=== PATIENT | female | born 1970 | race American Indian/Alaskan Native ===

== ENCOUNTER 2017-02-06 16:27 | Emergency (ER) | payer BC, MEDICAID ==
[2017-02-06 16:33] VITALS: BMI 36.0
[2017-02-06 16:39] VITALS: BP 111/75; PULSE 92; RESP 17; TEMP 99.6; O2SAT 98
--- NOTE | 2017-02-06 17:19 | C.PDOC ---
History Of Present Illness 46 y/o female presents to the ED with complaints of sore throat, body aches, snoring and sleep apnea x3 days. Denies SOB, cough, fever or any other complaints. Time Seen by Provider: 02/06/17 17:11 Chief Complaint (Nursing): ENT Problem History Per: Patient History/Exam Limitations: no limitations Onset/Duration Of Symptoms: Days Current Symptoms Are (Timing): Still Present Location Of Pain: Throat, Diffuse Myalgias Sick Contacts (Context): None Associated Symptoms: Sore Throat. denies: Fever, Cough Severity: Mild Recent travel outside of the [place]: No Past Medical History Reviewed: Historical Data, Nursing Documentation, Vital Signs Vital Signs: Last Vital Signs Temp 99.6 F 02/06/17 16:33 Pulse 92 H 02/06/17 16:33 Resp 17 02/06/17 16:33 BP 111/75 02/06/17 16:33 Pulse Ox 98 02/06/17 17:19 - Medical History PMH: Anemia Family History: States: Unknown Family Hx - Social History Hx Tobacco Use: No Hx Alcohol Use: No Hx Substance Use: No - Immunization History Hx Tetanus Toxoid Vaccination: No Hx Influenza Vaccination: No Hx Pneumococcal Vaccination: No Review Of Systems Except As Marked, All Systems Reviewed And Found Negative. Constitutional: Positive for: Other (body aches). Negative for: Fever, Chills ENT: Positive for: Throat Pain Respiratory: Negative for: Cough, Shortness of Breath Physical Exam - Physical Exam Appears: Non-toxic, No Acute Distress Skin: Warm, Dry, No Rash Head: Atraumatic, Normacephalic Ear(s): Bilateral: Normal Nose: Normal Oral Mucosa: Moist Throat: Normal, No Erythema Neck: Normal, Normal ROM, Supple Chest: Symmetrical Cardiovascular: Rhythm Regular, No Murmur Respiratory: Normal Breath Sounds, No Rales, No Rhonchi, No Wheezing Extremity: Bilateral: Atraumatic Neurological/Psych: Oriented x3, Normal Speech ED Course And Treatment O2 Sat by Pulse Oximetry: 98 (room air) Pulse Ox Interpretation: Normal Medical Decision Making Medical Decision Making: mild viral syndrome mild diarrhea due to new (self prescribed abx) or viral syndrome. large tonsils and small OP, snoring, consider LISA- refer to Dr. Malone for sleep study Disposition Doctor Will See Patient In The: Office Counseled Patient/Family Regarding: Studies Performed, Diagnosis - Disposition Referrals: Jeronimo Malone MD [Staff Provider] - Saud Brown MD [Staff Provider] - Disposition: HOME/ ROUTINE Disposition Time: 17:19 Condition: GOOD Additional Instructions: motrin and dayquil/nyquil for viral syndrome Follow-up with Dr. Brown Sleep Apnea: Call Dr. Malone to make appointment for a Sleep Study Instructions: Snoring (ED), Viral Syndrome (ED) - Clinical Impression Clinical Impression: Viral syndrome, Sleep apnea - Scribe Statement The provider has reviewed the documentation as recorded by the Rosa Aguiar Provider Attestation: All medical record entries made by the Rosa were at my direction and personally dictated by me. I have reviewed the chart and agree that the record accurately reflects my personal performance of the history, physical exam, medical decision making, and the department course for this patient. I have also personally directed, reviewed, and agree with the discharge instructions and disposition.
== END 2017-02-06 17:25 | disposition home or self-care (01) ==
LOC: C.ER 16:27
DX: B34.9 Viral infection, unspecified (principal); G47.30 Sleep apnea, unspecified

== ENCOUNTER 2017-05-02 20:53 | Emergency (ER) | payer BC ==
[2017-05-02 20:53] VITALS: BMI 36.0
--- NOTE | 2017-05-02 22:42 | C.PDOC ---
History Of Present Illness 47 y/o female c/o left side neck pain and left side lower back stiffness for a few days; pt also c/o pain behind bilateral thighs when sitting long time, occasional swollen ankles and tingling in bilateral feet, when standing, all going on intermittently for more than a month. no hx dm. pt not taking anything for pain, no fever or chills Time Seen by Provider: 05/02/17 22:11 Chief Complaint (Nursing): Medical Clearance History Per: Patient History/Exam Limitations: no limitations Onset/Duration Of Symptoms: Days Current Symptoms Are (Timing): Still Present Severity: Moderate Past Medical History Reviewed: Historical Data, Nursing Documentation, Vital Signs Vital Signs: Last Vital Signs Temp 97 F L 05/02/17 23:07 Pulse 87 05/02/17 23:07 Resp 20 05/02/17 23:07 BP 100/69 05/02/17 23:07 Pulse Ox 98 05/05/17 21:32 - Medical History PMH: Anemia Family History: States: Unknown Family Hx - Social History Hx Tobacco Use: No Hx Alcohol Use: No Hx Substance Use: No - Immunization History Hx Tetanus Toxoid Vaccination: No Hx Influenza Vaccination: No Hx Pneumococcal Vaccination: No Review Of Systems Constitutional: Negative for: Fever, Chills Musculoskeletal: Positive for: Back Pain Skin: Negative for: Rash Neurological: Negative for: Weakness, Numbness Physical Exam - Physical Exam Appears: Non-toxic, No Acute Distress Skin: Normal Color, Warm, Dry Neck: Normal ROM, No Midline Cervical Tenderness, Paracervical Tenderness (left) , Supple Chest: No Deformity, No Tenderness Cardiovascular: Rhythm Regular, No Murmur Respiratory: Normal Breath Sounds, No Accessory Muscle Use, No Wheezing Back: Normal Inspection, Paraspinal Tenderness (lef tthoracic area) Extremity: Normal ROM, No Tenderness Pulses: Left Dorsalis Pedis: Normal, Right Dorsalis Pedis: Normal Neurological/Psych: Oriented x3, Normal Speech, Normal Cognition, Normal Cranial Nerves, Normal Motor, Normal Sensation ED Course And Treatment O2 Sat by Pulse Oximetry: 98 Medical Decision Making Medical Decision Making: derick pt with left sided back and neck pain, likely musculoskeletal. pt with 1 month of occaional tingling and numbness to feet; f/y podiatry Disposition Counseled Patient/Family Regarding: Diagnosis, Need For Followup, Rx Given - Disposition Referrals: Saud Brown MD [Staff Provider] - Podiatry Clinic [Outside] Disposition: HOME/ ROUTINE Disposition Time: 22:52 Condition: STABLE Additional Instructions: Follow up with your doctor and with egg processor. Return to ER for any worse sympytoms Forms: General Discharge Instructions, [facility] (Upper Sorbian), Work Excuse - Clinical Impression Clinical Impression: Paresthesia of both feet
[2017-05-02 23:08] VITALS: BP 100/69; PULSE 87; RESP 20; TEMP 97
[2017-05-05 21:28] VITALS: O2SAT 98
== END 2017-05-02 23:08 | disposition home or self-care (01) ==
LOC: C.ER 20:53
DX: R20.2 Paresthesia of skin (principal)

== ENCOUNTER 2018-05-14 18:37 | Emergency (ER) | payer BC, MEDICAID ==
[2018-05-14 18:37] VITALS: BMI 36.0
--- NOTE | 2018-05-14 19:39 | C.PDOC ---
History Of Present Illness 48 year old female presents to the ED for evaluation of sore throat, cough, and congestion for 3 weeks. Patient reports taking over the counter medications with no improvement. Admits her daughter is sick at home with similar symptoms. Denies fever, shortness of breath, and any other associated symptoms. Time Seen by Provider: 05/14/18 19:12 Chief Complaint (Nursing): Cough, Cold, Congestion History Per: Patient History/Exam Limitations: no limitations Onset/Duration Of Symptoms: Days Current Symptoms Are (Timing): Still Present Past Medical History Reviewed: Historical Data, Nursing Documentation, Vital Signs Vital Signs: Last Vital Signs Temp 97.8 F 05/14/18 19:01 Pulse 70 05/14/18 19:01 Resp 18 05/14/18 19:01 BP 130/86 05/14/18 19:01 Pulse Ox 96 05/14/18 19:01 - Medical History PMH: Anemia Family History: States: Unknown Family Hx - Social History Hx Tobacco Use: No Hx Alcohol Use: No Hx Substance Use: No - Immunization History Hx Tetanus Toxoid Vaccination: No Hx Influenza Vaccination: No Hx Pneumococcal Vaccination: No Review Of Systems Constitutional: Negative for: Fever ENT: Positive for: Nose Congestion, Throat Pain (sore throat.) Respiratory: Positive for: Cough. Negative for: Shortness of Breath Physical Exam - Physical Exam Appears: Non-toxic Skin: Normal Color, Warm, Dry Head: Atraumatic, Normacephalic Ear(s): Bilateral: Normal Nose: Normal, No Discharge Throat: Normal, No Erythema Neck: Normal ROM, Supple Cardiovascular: Rhythm Regular, No Murmur Respiratory: Normal Breath Sounds, No Rales, No Rhonchi, No Wheezing Gastrointestinal/Abdominal: Normal Exam, Soft, No Tenderness Neurological/Psych: Oriented x3, Normal Speech Gait: Steady ED Course And Treatment O2 Sat by Pulse Oximetry: 96 (RA) Pulse Ox Interpretation: Normal Progress Note: Patient stable for discharge home. Prescribed Azithromycin. Medical Decision Making Medical Decision Making: Patient remained afebrile alert and oriented with stable vital signs during ER evaluation. Patient given follow up instructions. Instructed to return to ER if symptoms worsen or new symptoms arise. Disposition Counseled Patient/Family Regarding: Diagnosis, Need For Followup, Rx Given - Disposition Referrals: Saud Brown MD [Staff Provider] - Disposition: HOME/ ROUTINE Disposition Time: 19:38 Condition: STABLE Additional Instructions: Follow up with the clinic in 2-5 days for further evaluation. Take medications as prescribed. Return to the emergency department at any time if symptoms persist or worsen. You may call [facility] for any assistance [phone]. Prescriptions: Azithromycin [Z-Dandy] 250 mg PO DAILY #6 tab Instructions: Upper Respiratory Infection (ED) Forms: [employer] (Chinese) - POA Present On Arrival: None - Clinical Impression Clinical Impression: Upper respiratory infection - PA / SAMPLE STITCHER / Resident Statement MD/DO has reviewed & agrees with the documentation as recorded. - Scribe Statement The provider has reviewed the documentation as recorded by the Scribe (Fide Pollack) All medical record entries made by the Scribe were at my direction and personally dictated by me. I have reviewed the chart and agree that the record accurately reflects my personal performance of the history, physical exam, medical decision making, and the department course for this patient. I have also personally directed, reviewed, and agree with the discharge instructions and disposition.
[2018-05-14 20:13] VITALS: BP 116/85; PULSE 74; RESP 20; TEMP 98.2
[2018-05-14 20:22] VITALS: O2SAT 96
== END 2018-05-14 20:13 | disposition home or self-care (01) ==
LOC: C.ER 18:37
DX: J06.9 Acute upper respiratory infection, unspecified (principal)

== ENCOUNTER 2018-08-01 18:55 | Emergency (ER) | payer BC, MEDICAID ==
[2018-08-01 18:56] VITALS: BMI 36.0
[2018-08-01 19:06] VITALS: BP 129/88; PULSE 81; TEMP 98.5; O2SAT 95
--- NOTE | 2018-08-01 20:19 | C.PDOC ---
History Of Present Illness 48 y/o female comes in complaining of body weakness, cough, and congestion for the past week. Also notes she has sore throat and SOB when coughing but denies any vomiting, fever, chills, or other symptoms. Patient has not taken any medications for the symptoms. Daughter in ER for similar c/o Time Seen by Provider: 08/01/18 19:26 Chief Complaint (Nursing): Flu-like Symptoms History Per: Patient History/Exam Limitations: no limitations Onset/Duration Of Symptoms: Days Current Symptoms Are (Timing): Still Present Past Medical History Reviewed: Historical Data, Nursing Documentation, Vital Signs Vital Signs: Last Vital Signs Temp 98.5 F 08/01/18 19:03 Pulse 81 08/01/18 19:03 Resp 18 08/01/18 19:03 BP 129/88 08/01/18 19:03 Pulse Ox 95 08/01/18 19:03 - Medical History PMH: Anemia Family History: States: No Known Family Hx - Social History Hx Tobacco Use: No Hx Alcohol Use: No Hx Substance Use: No - Immunization History Hx Tetanus Toxoid Vaccination: No Hx Influenza Vaccination: No Hx Pneumococcal Vaccination: No Review Of Systems Except As Marked, All Systems Reviewed And Found Negative. Constitutional: Positive for: Other (Body aches). Negative for: Fever ENT: Positive for: Nose Discharge (runny nose), Nose Congestion Cardiovascular: Negative for: Chest Pain Respiratory: Positive for: Cough, Shortness of Breath (with cough) Gastrointestinal: Negative for: Vomiting, Abdominal Pain Skin: Negative for: Rash Physical Exam - Physical Exam Appears: Non-toxic, No Acute Distress Skin: Warm, Dry Head: Atraumatic, Normacephalic Eye(s): bilateral: Normal Inspection, PERRL, EOMI Oral Mucosa: Moist Throat: Normal, No Erythema, No Exudate Neck: Supple Chest: Symmetrical Cardiovascular: Rhythm Regular, No Murmur Respiratory: Normal Breath Sounds, No Rales, No Rhonchi, No Wheezing Extremity: Bilateral: Atraumatic, Normal Color And Temperature, Normal ROM Neurological/Psych: Oriented x3, Normal Speech ED Course And Treatment O2 Sat by Pulse Oximetry: 95 (RA) Pulse Ox Interpretation: Normal Progress Note: Patient is in no acute distress and will be discharged home. Instructed to return to ER if symptoms worsen or progress. Disposition Counseled Patient/Family Regarding: Diagnosis, Need For Followup, Rx Given - Disposition Referrals: Saud Brown MD [Staff Provider] - Disposition: HOME/ ROUTINE Disposition Time: 20:16 Condition: STABLE Additional Instructions: Increase PO fluids Take medications as directed Warm salt gargle or use chloraseptic spray Return to ER if worse Prescriptions: Benzonatate [Tessalon Perles] 200 mg PO TID #14 sgl Cetirizine HCl [Zyrtec] 10 mg PO DAILY #14 capsule Ibuprofen [Motrin] 600 mg PO Q6H #30 tab Instructions: Viral Upper Respiratory Infection, Adult (DC) Forms: [employer] (Romanian) - Clinical Impression Clinical Impression: Upper respiratory infection - PA / NURSE WOUND / Resident Statement MD/DO has reviewed & agrees with the documentation as recorded. - Scribe Statement The provider has reviewed the documentation as recorded by the Scribe Neeta Corley All medical record entries made by the Scribe were at my direction and personally dictated by me. I have reviewed the chart and agree that the record accurately reflects my personal performance of the history, physical exam, medic al decision making, and the department course for this patient. I have also personally directed, reviewed, and agree with the discharge instructions and disposition.
[2018-08-01 20:32] VITALS: RESP 20
== END 2018-08-01 20:31 | disposition home or self-care (01) ==
LOC: C.ER 18:55
DX: J06.9 Acute upper respiratory infection, unspecified (principal)